=== PATIENT | female | born 1945 | race Caucasian/White ===

== ENCOUNTER 2017-04-11 02:30 | Emergency (ER) | payer MEDICARE, OTHER ==
--- NOTE | ~2017-04-11 | EKG ---
PATIENT: LUCIAN CHAKRABORTY UNIT #: [id number] Ventricular Rate: 81 BPM Atrial Rate: 81 BPM P-R Interval: 192 ms QRS Duration: 84 ms Q-T Interval: 212 ms QTC Calculation(Bezet): 246 ms Calculated R [place]: 170 degrees Calculated T [place]: 83 degrees Diagnosis Line: Suspect arm lead reversal, interpretation Diagnosis Line: assumes no reversal Diagnosis Line: Normal sinus rhythm Diagnosis Line: Anterolateral infarct (cited on or before Diagnosis Line: 15-DEC-2012) Diagnosis Line: Abnormal ECG Diagnosis Line: When compared with ECG of 11-APR-2017 05:10, Diagnosis Line: (unconfirmed) Diagnosis Line: QT has shortened Diagnosis Line: Confirmed by DANA GIBSON MD ([id number]) on Diagnosis Line: 04/12/2017 12:32:40 PM INTERPRETING MD: ARTHUR MONACO
--- NOTE | ~2017-04-11 | CR72 ---
[facility] A Service of [facility] & [facility] RADIOLOGY TEXT RESULTS PATIENT: LUCIAN CHAKRABORTY LOCATION: [facility] : 43 UNIT #: [id number] AGE: [address]: Jayson Roy DO SEX: F ORDER DR: [id number] [facility] [address] [place], [place] [address] [id number] E MR#: [id number] #: [id number] NAME: LUCIAN CHAKRABORTY. : 1945 SEX: F STUDY DATE/TIME: 04/11/2017 4:45 UNIT: [facility] ROOM: STUDY DESCRIPTION: CR Chest Single View Portable Attending Physician: Jayson Roy D.O. Ordering Physician: Jose Cruz Cooper Aprn Primary Care Physician: Jose Baires M.D. MEDICAL IMAGING REPORT This report is preliminary unless electronic signature is present EXAM Chest x-ray 04/11/2017 HISTORY 71-year-old female in the ED complaining of new onset chest pain tonight. Elevated blood pressure and heart palpitations. TECHNIQUE AP upright chest images. FINDINGS Exam shows no active disease in the chest. Congenital cardiothoracic situs inversus is noted. Heart size and pulmonary vascularity are normal. The lungs are clear. Benign calcified granuloma right lung base. No pleural effusion. IMPRESSION 1. No active disease. 2. Congenital cardiothoracic situs inversus. Dictated by... Alfred Bonner M.D. THIS IS AN ELECTRONICALLY VERIFIED REPORT Alfred Bonner M.D. at 04/12/2017 2:44 AM DIXON/marlene TD: 04/11/2017 13:25 JOB #: [id number] MEDICAL IMAGING REPORT Page 1 of 1 COPY
--- NOTE | ~2017-04-11 | CO ---
Unit #: [id number] #: [id number] Patient: LUCIAN CHAKRABORTY [id number] [address] [address] [id number] E MR#: [id number] NAME: LUCIAN CHAKRABORTY ROOM: Age: 71 Sex: F Admission Date: 04/11/2017 : 1945 Attending Physician: Jayson Roy D.O. Primary Care Physician: Jose Baires M.D. Consultation Date: 04/11/2017 CONSULTATION REPORT INDICATION Chest pain and tachycardia. HISTORY OF PRESENTING ILLNESS 71-year-old female with a past medical history of situs inversus (congenital), hypertension, diabetes, hyperlipidemia, who comes to the ER with episodes of tachycardia and chest discomfort. Patient describes that since yesterday she has had three episodes of on and off rapid heart rate and associated chest discomfort with no radiation. She does mentioned chest tightness with these episodes. They last 15 to 20 minutes. But the last episode this morning persisted for a longer duration and the patient came to the ER. In the ER, the patient's initial heart rate was around 140s beats per minute. By the time EKG has been recorded, the patient converted to normal sinus rhythm. She denies dyspnea on exertion, orthopnea, PND, and syncope. She denies any family history of sudden cardiac . The patient also reports a history of panic attacks in the past with the loss of her a few months back. She currently takes amlodipine for her blood pressure. She denies any side effects to current medications. She denies any exertional chest pain on a regular daily basis. She denies any prior cardiac workup. PAST MEDICAL HISTORY 1. Congenital situs inversus. 2. Diabetes. 3. Hypertension. PAST SURGICAL HISTORY No cardiac surgeries. REVIEW OF SYSTEMS All fourteen point review of system negative, rest as per HPI. GENERAL: No fever. No weakness. RESPIRATORY: No cough. No shortness of breath. CHEST: As per HPI. ABDOMEN: No vomiting or diarrhea. NEUROLOGIC: No headache. No visual disturbance. PSYCH: No hallucinations or delusion. SKIN: There is no breakdown. Skin is intact and no ulcers and no rash. MUSCULOSKELETAL: No joint pains. No deformities. HEENT: No hearing loss. No visual disturbances. ENDOCRINE: No excessive thirst or polyuria. Unit #: [id number] #: [id number] Patient: LUCIAN CHAKRABORTY FAMILY HISTORY Negative for sudden cardia . SOCIAL HISTORY Denies smoking, alcohol or drug abuse. OUTPATIENT MEDICATIONS Amlodipine 5 mg daily; aspirin 81 mg p.o. daily; atorvastatin 20 mg p.o. daily. PHYSICAL EXAMINATION VITAL SIGNS: The patient's blood pressure is 160/80 mmHg. Patient's heart rate is 80 beats per minute, respiratory rate is 16. She is afebrile at 98.1 temperature. GENERAL: Not in acute distress. HEENT: PERRLA. NECK: No thyromegaly. No JVD. CHEST: Clear. Normal vesicular breath sounds heard bilaterally. HEART: S1 and S2 is heard. Dextrocardia is present. No murmurs appreciated. ABDOMEN: Soft, nontender, bowel sounds are present. NEUROLOGICALLY: Alert and oriented x3. Speech is normal. PSYCHIATRIC: Mood and affect normal. SKIN: Intact. No rash. No ulcer. MUSCULOSKELETAL: No gross scoliosis or deformities are present. HEME: No lymphadenopathy is present. EXTREMITIES: No edema. Distal pulses are present bilaterally equally. DIAGNOSTIC STUDIES LABS: Creatinine 0.8, albumin 11, glucose 126, sodium is 139, potassium 3.4, chloride is 20, bili 0.3, AST is 24, ALT 18. CARDIOLOGY STUDIES: EKG shows normal sinus rhythm with dextrocardia. ASSESSMENT/PLAN 1. Chest pain. Patient's chest pain usually associated with palpitations. Patient's point of care troponin has been negative. Also EKG is also stable. No further cardiac ischemic evaluation at present. 2. Patient to be followed up as an outpatient for further testing. 3. Palpitations: This could present SVT. Though with such short durations and recent onset, no further testing needed. I would give patient a trial of beta-justen. If patient continues to have breakthrough symptoms noted, then further event monitoring can be done. I am not proceeding with any Holter monitoring, secondary to low yield on most occasions. 4. Patient will undergo a 2D echocardiogram, scheduled as an outpatient also. 5. Hyperlipidemia. Continue with statin. 6. Hypertension. Patient is a diabetic but currently not on an LUAN inhibitor with normal creatinine and she is not allergic to this. I mentioned this to the patient and the patient wants us clarify with the patient's primary care provider. I agree with same. Patient would benefit from LUAN inhibitor. 7. Patient will be scheduled for outpatient clinic followup and is stable to be discharged today. Rest test per ED department. Unit #: [id number] #: [id number] Patient: LUCIAN CHAKRABORTY Dictated by... Sherley Fuchs/ernst TD: 04/12/2017 07:11 JOB #: [id number] CONSULTATION REPORT Page 1 of 1 X ADAMS LOWE MD X CONSULTATION REPORT
--- NOTE | ~2017-04-11 | EKG ---
PATIENT: LUCIAN CHAKRABORTY UNIT #: [id number] Ventricular Rate: 85 BPM Atrial Rate: 85 BPM P-R Interval: 218 ms QRS Duration: 78 ms Q-T Interval: 366 ms QTC Calculation(Bezet): 435 ms P [place]: 158 degrees Calculated R [place]: 180 degrees Calculated T [place]: 135 degrees Diagnosis Line: Suspect arm lead reversal, interpretation Diagnosis Line: assumes no reversal Diagnosis Line: Unusual P axis, possible ectopic atrial rhythm Diagnosis Line: Anterolateral infarct (cited on or before Diagnosis Line: 15-DEC-2012) Diagnosis Line: Abnormal ECG Diagnosis Line: When compared with ECG of 15-DEC-2012 11:42, Diagnosis Line: Ectopic atrial rhythm has replaced Sinus rhythm Diagnosis Line: QRS axis Shifted right Diagnosis Line: Nonspecific T wave abnormality, worse in Diagnosis Line: Anterolateral leads Diagnosis Line: Confirmed by DANA GIBSON MD ([id number]) on Diagnosis Line: 04/12/2017 12:31:25 PM INTERPRETING MD: ARTHUR MONACO
--- NOTE | ~2017-04-11 | CT16 ---
[facility] A Service of [facility] RADIOLOGY TEXT RESULTS PATIENT: LUCIAN CHAKRABORTY LOCATION: [facility] : 41 UNIT #: [id number] AGE: [address]: Jayson Roy DO SEX: F ORDER DR: [id number] [facility] [address] [place], [place] [address] [id number] E MR#: [id number] #: [id number] NAME: LUCIAN CHAKRABORTY : 1945 SEX: F STUDY DATE/TIME: 04/11/2017 10:27 UNIT: [facility] ROOM: STUDY DESCRIPTION: CT Angio Chest for PE Attending Physician: Jayson Roy D.O. Ordering Physician: Jayson Roy D.O. Primary Care Physician: Jose Baires M.D. MEDICAL IMAGING REPORT This report is preliminary unless electronic signature is present EXAM CT angiogram with contrast, 04/11/17 HISTORY Heart palpitations since 04/10, elevated D-dimer of 851, history of situs inversus. PROCEDURE Axial contrast enhanced CT angiogram with [address] exam was performed with one or more of the following radiation dose reduction techniques: automatic exposure control, adjustment of mA and/or kV according to patient size, and iterative reconstruction. COMPARISON STUDIES None. FINDINGS There is situs and versus totalis. There is no pulmonary infiltrate, pleural effusion, pneumothorax or suspicious nodule, though there is limited old granulomatous disease. The thoracic aorta is normal in caliber. There is no evidence of aneurysm. Bolus timing is good. The pulmonary arteries are well opacified. Images of the upper abdomen show no acute abnormality. There are spinal degenerative changes, but there is no acute bony abnormality. IMPRESSION Negative pulmonary CT angiogram. Good bolus timing and no evidence of pulmonary aneurysm. Incidentally noted situs and versus totalis, but no [facility] A Service of [facility] RADIOLOGY TEXT RESULTS PATIENT: LUCIAN CHAKRABORTY LOCATION: [facility] : 41 UNIT #: [id number] AGE: [address]: Jayson Roy DO SEX: F ORDER DR: acute abnormality is seen. The thoracic aorta is otherwise normal. There is old granulomatous disease. Dictated by... Zak Jefferson M.D. THIS IS AN ELECTRONICALLY VERIFIED REPORT Zak Jefferson M.D. at 04/15/2017 7:28 AM SAULO/chelle TD: 04/11/2017 21:22 JOB #: [id number] MEDICAL IMAGING REPORT Page 1 of 1 COPY
[2017-04-11 05:31] LABS: BASOPHIL% 0.5 % (0-2.5); EOSINOPHIL% 0.3 % (0.0-7.0); HEMATOCRIT 42.2 % (35.0-45.0); HEMOGLOBIN 14.8 gm/dL (12.0-16.0); LYMPHOCYTE# 1.4 X10e3 (1.0-3.5); LYMPHOCYTE% 24.4 % (17.0-45.0); MEAN CELL VOLUME 89.2 FL (83-96); MEAN CORPUSCULAR HEMOGLOBIN 31.2 PG (28-34); MEAN PLATELET VOLUME 6.9 FL (6.5-11.5); MONOCYTE# 0.4 X10e3 (0-1.0); MONOCYTE% 6.3 % (3.0-12.0); NEUTROPHIL# 3.8 X10e3 (1.5-7.1); NEUTROPHIL% 68.5 % (40-75); PLATELET COUNT 208 X10e3 (140-420); RED BLOOD COUNT 4.73 X10e (3.90-5.30); RED CELL DISTRIBUTION WIDTH 13.1 % (11.0-15.5); WHITE BLOOD COUNT 5.6 X10e3 (4.0-10.5)
[2017-04-11 05:32] LABS: POC - CKMB <1.0 ng/mL (0.0-7.9); POC - TROPONIN <0.05 ng/mL (<=0.05)
[2017-04-11 05:36] LABS: DIFF IND NO
[2017-04-11 05:53] LABS: ALBUMIN SERUM 4.5 g/dL (3.5-5.0); BILIRUBIN, DIRECT 0.3 mg/dL (0.0-0.2); BILIRUBIN,INDIRECT 1.2 mg/dL (0.0-0.9); BILIRUBIN,TOTAL 1.5 mg/dL (0.2-2.0); BUN/CREATININE RATIO 13.75; CALCIUM SERUM 9.3 mg/dL (8.4-10.2); CREATININE SERUM 0.8 mg/dL (0.6-1.4); GLOM FILT RATE Estimated 73.2 mL/min (>60); POTASSIUM 3.4 mmol/L (3.5-5.1); PROTEIN TOTAL SERUM 7.5 g/dL (6.0-8.3)
[2017-04-11 06:23] LABS: URINE APPEARANCE CLEAR; URINE BILIRUBIN NEG (NEG); URINE BLOOD NEG (NEG); URINE COLOR YELLOW; URINE GLUCOSE 100 MG/DL (NEG); URINE KETONE NEG (NEG); URINE LEUKOCYTE ESTERASE 3+ (NEG); URINE NITRATE NEG (NEG); URINE PH 6.5 (5-8); URINE PROTEIN TRACE (NEG); URINE SPECIFIC GRAVITY 1.012 (1.003-1.035); URINE UROBILINOGEN 0.2 MG/DL (NEG)
[2017-04-11 06:26] LABS: CULTURE INDICATED? YES; URBCS1 AUWI 0-2 /[HPF] (0-2); URINE BACTERIA AUWI NEG (NEGATIVE); URINE SQUAMOUS EPITHELIAL CELL FEW /[HPF]
[2017-04-11 07:08] LABS: POC - CKMB <1.0 ng/mL (0.0-7.9); POC - TROPONIN <0.05 ng/mL (<=0.05)
== END 2017-04-11 11:35 | disposition short-term general hospital (02) ==
LOC: CED 02:30
PROVIDERS: Nurse Practitioner Family
DX: R00.2 Palpitations (principal); E78.5 Hyperlipidemia, unspecified; I10 Essential (primary) hypertension; E11.9 Type 2 diabetes mellitus without complications
CPT/HCPCS: 36415; 71010; 71275; 80048; 80076; 81003; 82553; 83735; 84484; 85025; 85379; 87086; 93005; 96360; 99285; Q9967